=== PATIENT | female | born 1990 | race American Indian/Alaskan Native ===

== ENCOUNTER 2017-10-17 18:47 | Emergency (ER) | payer MEDICAID, OTHER ==
[2017-10-17 18:55] VITALS: BP 138/79
--- NOTE | 2017-10-17 21:21 | Emergency Department Report ---
<WERO BOWMAN - Last Filed: 10/17/17 23:46> ED Extremity Problem HPI - General Chief complaint: Extremity Problem,Nontraumatic Stated complaint: RIGHT CALF PAIN Time Seen by Provider: 10/17/17 20:36 Source: patient Mode of arrival: Ambulatory Limitations: No Limitations - History of Present Illness Initial comments: 27-year-old obese female reports that she does have a right calf cramping pain swelling. Patient denies any history of DVT as well as patient reports that she had been a severe outbreak of herpes. Patient reports that she is currently on no control she does admit to being on a flight on October 13 from [place] to [place]. 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 Patient also complains of chest pain that is midsternal and travels to her back when she takes a deep breath. Patient is currently taking no medication she does have an allergy to amoxicillin. MD Complaint: extremity pain (right calf), extremity swelling (right calf) -: days(s) (4) Location: right, lower extremity History of Same: No -: No fever, Yes associated chest pain Radiation: none Severity scale (0 -10): 9 Quality: other (crampy) Consistency: constant Improves with: nothing Worsens with: weight bearing, walking Associated Symptoms: chest pain - Related Data Previous Rx's Medication Instructions Recorded Last Taken Type Fluconazole [Diflucan] 150 mg PO ONCE #1 tablet 10/17/17 Unknown Rx Ibuprofen [Motrin 800 MG tab] 800 mg PO Q8HR PRN #30 tablet 10/17/17 Unknown Rx Nystatin Cream [Mycostatin Cream] 1 applic TP TID #30 gram 10/17/17 Unknown Rx Allergies Allergy/AdvReac Type Severity Reaction Status Date / Time amoxicillin Allergy Hives Verified 10/17/17 18:49 ED Review of Systems ROS: Stated complaint: RIGHT CALF PAIN Other details as noted in HPI Constitutional: denies: chills, fever Eyes: denies: eye pain, eye discharge, vision change ENT: denies: ear pain, throat pain Respiratory: denies: cough, shortness of breath, wheezing Cardiovascular: chest pain Endocrine: no symptoms reported Gastrointestinal: denies: abdominal pain, nausea, diarrhea Genitourinary: denies: urgency, dysuria, discharge Musculoskeletal: other (right lower leg swelling and pain ) Skin: rash (vaginal area) Neurological: denies: headache, weakness, paresthesias Psychiatric: denies: anxiety, depression Hematological/Lymphatic: denies: easy bleeding, easy bruising ED Past Medical Hx - Past Medical History Additional medical history: anemia, herpes - Surgical History Hx Cholecystectomy: Yes Additional Surgical History: tonsilectomy, x4 - Social History Smoking Status: Never Smoker Substance Use Type: None - Medications Home Medications: Home Medications Medication Instructions Recorded Confirmed Last Taken Type Fluconazole [Diflucan] 150 mg PO ONCE #1 tablet 10/17/17 Unknown Rx Ibuprofen [Motrin 800 MG tab] 800 mg PO Q8HR PRN #30 tablet 10/17/17 Unknown Rx Nystatin Cream [Mycostatin Cream] 1 applic TP TID #30 gram 10/17/17 Unknown Rx ED Physical Exam - General Limitations: No Limitations General appearance: alert, in no apparent distress - Eye Eye exam: Present: EOMI - Neck Neck exam: Present: full ROM. Absent: lymphadenopathy - Expanded Lower Extremity Exam Right Knee exam: Present: full ROM, tenderness, swelling Lower Leg exam: Present: tenderness, swelling, Rony's sign Ankle exam: Present: full ROM, tenderness, swelling Neuro vascular tendon exam: Present: no vascular compromise Gait: Positive: observed and limited by pain - Back Exam Back exam: Present: full ROM. Absent: tenderness - Neurological Exam Neurological exam: Present: alert, oriented X3 - Psychiatric Psychiatric exam: Present: normal affect, normal mood ED Course Vital Signs 10/17/17 10/17/17 18:50 23:55 Temperature 98.6 F Pulse Rate 95 H 79 Respiratory 18 17 Rate Blood Pressure 138/79 O2 Sat by Pulse 99 99 Oximetry ED Medical Decision Making - Lab Data Result diagrams: 10/17/17 20:58 10/17/17 20:58 - Radiology Data Radiology results: report reviewed, image reviewed FINAL REPORT PROCEDURE: CT ANGIO CHEST TECHNIQUE: Computerized axial tomographic angiography of the chest and pulmonary arteries was performed after the IV injection of iodinated nonionic contrast. The image data was postprocessed using maximum intensity projection (MIP) and 2-dimensional multiplanar reformatted (MPR) techniques. The examination is specifically tailored to the evaluation of the pulmonary arteries per clinical request. HISTORY: Short of breath 786.09, chest pain 786.50, elevated d-dimer with cp and with deep breath COMPARISON: No prior studies are available for comparison. FINDINGS: Heart and pericardium: Normal. Thoracic aorta: There is no thoracic aortic aneurysm or dissection.. Pulmonary vasculature: There is no pulmonary embolism. There is suboptimal opacification of the distal pulmonary artery branches.. Lymph nodes: No enlarged thoracic lymph nodes. Lungs: The lungs are clear and expanded. There are no infiltrates.. Pleural space: No effusion, thickening, or pneumothorax. Musculoskeletal structures: No significant abnormality. Upper abdominal structures: No significant abnormality. There has been a cholecystectomy. IMPRESSION: There is no thoracic aortic aneurysm or dissection.. There is no pulmonary embolism. There is suboptimal opacification of the distal pulmonary artery branches.. The lungs are clear and expanded. There are no infiltrates.. . Transcribed By: CO Dictated By: NUBIA SHARMA MD Electronically Authenticated By: NUBIA HSARMA MD Signed Date/Time: 10/17/172300 DD/ 00 TD/TT: 10/17/172300 - Medical Decision Making Patient has been evaluated by this provider fast track. Labs ordered CBC CMP d-dimer Imaging ordered. Critical care attestation.: If time is entered above; I have spent that time in minutes in the direct care of this critically ill patient, excluding procedure time. ED Disposition Disposition: DC-01 TO HOME OR SELFCARE Is pt being admited?: No Does the pt Need Aspirin: No Condition: Stable Additional Instructions: Please take medications as prescribed. It is very important for you to follow up tomorrow morning at 9 AM to radiology for a venous Doppler of the right leg. And please wait for the results before leaving to determine if he needs to be seen in the emergency room. Prescriptions: Fluconazole [Diflucan] 150 mg PO ONCE #1 tablet Ibuprofen [Motrin 800 MG tab] 800 mg PO Q8HR PRN #30 tablet PRN Reason: Pain , Severe (7-10) Nystatin Cream [Mycostatin Cream] 1 applic TP TID #30 gram Referrals: PRIMARY CARE, [Primary Care Provider] - 3-5 Days [facility] [Provider Group] - 3-5 Days Forms: Work/School Release Form(ED) <YENNY PALMA - Last Filed: 10/18/17 14:32> ED Medical Decision Making - Lab Data Result diagrams: 10/17/17 20:58 10/17/17 20:58 - Medical Decision Making Patient had 2+ ultrasound done and this shows that she has a DVT. Patient was contacted to return to emergency department for prescription for Eliquis. Prescription will be provided and patient she'll follow with her primary care physician
[2017-10-17 21:28] LABS: Basophils # (Auto) 0.1 K/mm3 (0.0-0.1); Basophils % (Auto) 1.6 % (0.0-1.8); Eosinophils # (Auto) 0.1 K/mm3 (0.0-0.4); Eosinophils % (Auto) 1.5 % (0.0-4.3); Hematocrit 32.2 % (30.3-42.9); Hemoglobin 9.8 gm/dl (10.1-14.3); Lymphocytes % (Auto) 27.6 % (13.4-35.0); Mean Corpuscular HGB Conc 30 % (30-34); Mean Corpuscular Hemoglobin 19 pg (28-32); Mean Corpuscular Volume 63 fl (79-97); Monocytes # (Auto) 0.8 K/mm3 (0.0-0.8); Monocytes % (Auto) 10.7 % (0.0-7.3); Platelet Count 354 K/mm3 (140-440); Red Blood Count 5.09 M/mm3 (3.65-5.03); Red Cell Distribution Width 17.1 % (13.2-15.2)
[2017-10-17 21:38] LABS: INR 0.98 (0.87-1.13)
[2017-10-17 21:54] LABS: Albumin 4.3 g/dL (3.9-5); BUN/Creatinine Ratio 13; Blood Urea Nitrogen 9 mg/dL (7-17); Calcium 9.4 mg/dL (8.4-10.2); Hemolysis Index 0
[2017-10-17 21:56] LABS: Alanine Aminotransferase < 5 units/L (7-56)
[2017-10-17] MEDS ORDERED: ULTRAM PO ONE (22:01)
[2017-10-17] MEDS ORDERED: ELIQUIS PO ONE (22:12)
[2017-10-17] MEDS ORDERED: MYCOSTATIN TP ONE (22:14)
--- NOTE | 2017-10-17 23:06 | Cat Scan Report ---
FINAL REPORT PROCEDURE: CT ANGIO CHEST TECHNIQUE: Computerized axial tomographic angiography of the chest and pulmonary arteries was performed after the IV injection of iodinated nonionic contrast. The image data was postprocessed using maximum intensity projection (MIP) and 2-dimensional multiplanar reformatted (MPR) techniques. The examination is specifically tailored to the evaluation of the pulmonary arteries per clinical request. HISTORY: Short of breath 786.09, chest pain 786.50, elevated d-dimer with cp and with deep breath COMPARISON: No prior studies are available for comparison. FINDINGS: Heart and pericardium: Normal. Thoracic aorta: There is no thoracic aortic aneurysm or dissection.. Pulmonary vasculature: There is no pulmonary embolism. There is suboptimal opacification of the distal pulmonary artery branches.. Lymph nodes: No enlarged thoracic lymph nodes. Lungs: The lungs are clear and expanded. There are no infiltrates.. Pleural space: No effusion, thickening, or pneumothorax. Musculoskeletal structures: No significant abnormality. Upper abdominal structures: No significant abnormality. There has been a cholecystectomy. IMPRESSION: There is no thoracic aortic aneurysm or dissection.. There is no pulmonary embolism. There is suboptimal opacification of the distal pulmonary artery branches.. The lungs are clear and expanded. There are no infiltrates.. .
--- NOTE | 2017-10-18 20:55 | Emergency Department Report ---
Blank Doc - Documentation Documentation: I was asked to clarify prescription of Eliquis for patient. I reviewed the report US report. Patient does not have DVT. Patient has superficial thrombophlebitis in right calf. I have spoken with patient and pharmacist. I encouraged patient to use aspirin. I discontinued the Eliquis. I encouraged patient to follow up with her PCP for further treatment.
== END 2017-10-17 23:55 | disposition home or self-care (01) ==
LOC: ED 18:47
DX: M79.661 Pain in right lower leg (principal); R07.89 Other chest pain; Z90.49 Acquired absence of other specified parts of digestive tract; Z88.1 Allergy status to other antibiotic agents
CPT/HCPCS: 36415; 71275; 80053; 84703; 85025; 85379; 85610; 99284; Q9967

== ENCOUNTER 2017-10-18 08:46 | Outpatient (CLI) | payer MEDICAID, OTHER ==
--- NOTE | 2017-10-19 16:42 | Vascular Lab Report ---
Right Lower Extremity Venous Duplex Study: Reason for Exam: Pain and swelling of the right lower extremity. Comments on the Right: All veins visualized are freely compressible without evidence of internal echogenicity. Flow is spontaneous and phasic throughout. No evidence of acute or chronic thrombus is seen in any of the vessels visualized. A varicose vein is noted in the distal left calf and is thrombosed. Comments on the Left: A limited duplex study was done of the proximal veins of the left lower extremity. All veins visualized are freely compressible without evidence of internal echogenicity. Flow is spontaneous and phasic throughout. No evidence of acute or chronic thrombus is seen in any of the vessels visualized. Impression: No evidence of acute or chronic deep venous thrombosis in the right lower extremity. There is a thrombosed varicose vein in the distal right calf. The
== END 2017-10-18 08:47 | disposition home or self-care (01) ==
LOC: VAS 08:46
PROVIDERS: ATTEND Physician Assistant
DX: I83.891 Varicose veins of right lower extremity with other complications (principal)

== ENCOUNTER 2017-10-24 01:50 | Emergency (ER) | payer OTHER ==
[2017-10-24 02:33] LABS: Basophils # (Auto) 0.1 K/mm3 (0.0-0.1); Basophils % (Auto) 1.5 % (0.0-1.8); Eosinophils # (Auto) 0.3 K/mm3 (0.0-0.4); Eosinophils % (Auto) 4.5 % (0.0-4.3); Lymphocytes # (Auto) 2.2 K/mm3 (1.2-5.4); Lymphocytes % (Auto) 30.7 % (13.4-35.0); Mean Corpuscular HGB Conc 30 % (30-34); Monocytes # (Auto) 0.7 K/mm3 (0.0-0.8); Monocytes % (Auto) 9.4 % (0.0-7.3); Platelet Count 329 K/mm3 (140-440); Red Blood Count 4.61 M/mm3 (3.65-5.03)
[2017-10-24 02:35] LABS: Hematocrit 29.2 % (30.3-42.9); Hemoglobin 8.7 gm/dl (10.1-14.3); Mean Corpuscular Hemoglobin 19 pg (28-32); Mean Corpuscular Volume 63 fl (79-97)
[2017-10-24 02:51] LABS: BUN/Creatinine Ratio 10; Blood Urea Nitrogen 7 mg/dL (7-17); Calcium 9.1 mg/dL (8.4-10.2); Hemolysis Index 6
[2017-10-24 02:54] LABS: Alanine Aminotransferase < 5 units/L (7-56)
--- NOTE | 2017-10-24 08:22 | Emergency Department Report ---
ED General Adult HPI - General Chief complaint: Extremity Problem,Nontraumatic Stated complaint: RIGHT LEG PAIN Time Seen by Provider: 10/24/17 08:20 Source: patient, RN notes reviewed, old records reviewed Mode of arrival: Ambulatory Limitations: No Limitations - History of Present Illness Initial comments: His is a 27-year-old female who is unknown to this provider previously, recently seen in this hospital for nontraumatic right lower extremity pain, found to have a thrombosed varicose vein, also had a negative CT scan on the chest for pulmonary embolus, who presents to the ER with multiple complaints. The patient's first complaint is non-traumatic right-sided knee pain and discomfort, which she describes as a locking up sensation, the pain is in the anterior knee, increases with palpation, range of motion, decreases with rest. It does not radiate anywhere. Her next complaint is epigastric abdominal pain which radiates down to the lower abdominal region, this is present for a few days, it is sharp, increases with palpation and decreases with rest. She describes to sexual contacts within the past year, she is not sure if she's had a history of gonorrhea or chlamydia. She denies DVT, pulmonary embolus risk factors. Her epigastric pain is described as burning. There is no vomiting, diaphoresis, she denies cocaine ingestion. -: Gradual Location: abdomen, right, lower extremity Radiation: abdomen Severity scale (0 -10): 8 Quality: burning, aching Consistency: intermittent Improves with: rest Worsens with: movement Associated Symptoms: chest pain, loss of appetite, malaise, weakness, other ( right knee pain, abdominal pain). denies: confusion, cough, diaphoresis, fever/ chills, headaches, nausea/vomiting, rash, seizure, shortness of breath, syncope - Related Data Previous Rx's Medication Instructions Recorded Last Taken Type Fluconazole [Diflucan] 150 mg PO ONCE #1 tablet 10/17/17 Unknown Rx Ibuprofen [Motrin 800 MG tab] 800 mg PO Q8HR PRN #30 tablet 10/17/17 Unknown Rx Nystatin Cream [Mycostatin Cream] 1 applic TP TID #30 gram 10/17/17 Unknown Rx Apixaban [Eliquis] 5 mg PO BID #42 tablet 10/18/17 Unknown Rx Acetaminophen [Tylenol Arthritis] 650 mg PO Q6HR PRN #30 tablet.er 10/24/17 Unknown Rx Ibuprofen [Motrin] 600 mg PO Q8H PRN #30 tablet 10/24/17 Unknown Rx Ondansetron [Zofran Odt] 4 mg PO Q8HR PRN #20 tab.rapdis 10/24/17 Unknown Rx Allergies Allergy/AdvReac Type Severity Reaction Status Date / Time amoxicillin Allergy Hives Verified 10/24/17 02:00 ED Review of Systems ROS: Stated complaint: RIGHT LEG PAIN Other details as noted in HPI Constitutional: malaise. denies: fever Eyes: denies: eye discharge ENT: denies: epistaxis Respiratory: denies: cough Cardiovascular: chest pain Gastrointestinal: abdominal pain Genitourinary: denies: dysuria Musculoskeletal: arthralgia, myalgia Skin: denies: lesions Neurological: denies: weakness Psychiatric: anxiety ED Past Medical Hx - Past Medical History Additional medical history: anemia, herpes - Surgical History Hx Cholecystectomy: Yes Additional Surgical History: tonsilectomy, x4 - Social History Smoking Status: Never Smoker Substance Use Type: None - Medications Home Medications: Home Medications Medication Instructions Recorded Confirmed Last Taken Type Fluconazole [Diflucan] 150 mg PO ONCE #1 tablet 10/17/17 Unknown Rx Ibuprofen [Motrin 800 MG tab] 800 mg PO Q8HR PRN #30 tablet 10/17/17 Unknown Rx Nystatin Cream [Mycostatin Cream] 1 applic TP TID #30 gram 10/17/17 Unknown Rx Apixaban [Eliquis] 5 mg PO BID #42 tablet 10/18/17 Unknown Rx Acetaminophen [Tylenol Arthritis] 650 mg PO Q6HR PRN #30 tablet.er 10/24/17 Unknown Rx Ibuprofen [Motrin] 600 mg PO Q8H PRN #30 tablet 10/24/17 Unknown Rx Ondansetron [Zofran Odt] 4 mg PO Q8HR PRN #20 tab.rapdis 10/24/17 Unknown Rx ED Physical Exam - General Limitations: No Limitations, Physical Limitation General appearance: alert, in no apparent distress, obese - Head Head exam: Present: atraumatic, normocephalic - Eye Eye exam: Present: normal appearance, EOMI. Absent: nystagmus - ENT ENT exam: Present: normal exam, normal orophraynx, mucous membranes moist, normal external ear exam - Neck Neck exam: Present: normal inspection, full ROM - Respiratory Respiratory exam: Present: normal lung sounds bilaterally. Absent: respiratory distress - Cardiovascular Cardiovascular Exam: Present: regular rate, normal rhythm, normal heart sounds. Absent: bradycardia, tachycardia, irregular rhythm, systolic murmur, diastolic murmur, rubs, gallop - GI/Abdominal GI/Abdominal exam: Present: soft, tenderness, normal bowel sounds, other (there is suprapubic tenderness, there is bilateral lower quadrant tenderness, there is no rebound, guarding or peritoneal signs.). Absent: distended, guarding, rebound, rigid, pulsatile mass - External exam: Present: normal external exam Speculum exam: Present: vaginal bleeding Bi-manual exam: Present: normal bi-manual exam, other (chaperonne: bhupinder tl). Absent: cervical motion tendernes, adnexal tenderness, adnexal mass , uterine enlargement, uterine tenderness - Extremities Exam Extremities exam: Present: normal inspection, full ROM, tenderness (the right knee is tender on the anterior joint line. There is no laxity. Compartment soft. No redness, pus or streaking.), normal capillary refill, other (2+ pulses noted in the bilateral upper, lower extremities. Compartments soft. The pelvis is stable.). Absent: pedal edema, joint swelling, calf tenderness - Back Exam Back exam: Present: normal inspection - Neurological Exam Neurological exam: Present: alert, oriented X3, CN II-XII intact, other ( Extraocular movements intact. Tongue midline. No facial droop. Facial sensation intact to light touch in the V1, V2, V3 distribution bilaterally. 5 and 5 strength in 4 extremities.. Sensation is intact to light touch in 4 extremities.). Absent: motor sensory deficit - Psychiatric Psychiatric exam: Present: anxious - Skin Skin exam: Present: warm, dry, intact, normal color. Absent: rash ED Course Vital Signs 10/24/17 10/24/17 10/24/17 02:00 06:08 10:14 Temperature 98.5 F Pulse Rate 89 66 Respiratory 18 13 20 Rate Blood Pressure 124/54 Blood Pressure 121/66 [Left] O2 Sat by Pulse 97 100 Oximetry - Reevaluation(s) Reevaluation #1: 10/24/17 11:09 Differential diagnosis, including but not limited to: GERD, gastritis, pancreatitis, pelvic inflammatory disease, pneumonia, acute coronary syndrome, dysmenorrhea, arthritis, patellofemoral syndrome Assessment and plan: 27-year-old female with a primary complaint of right leg pain, secondary complaint of epigastric abdominal pain and lower abdominal pain. Recently ruled out for pulmonary embolus and DVT. X-ray of the knee is negative for fracture, dislocation. May be tendon overuse syndrome versus patellofemoral syndrome. The knee pain Be treated symptomatically, supportively , and she can follow up with outpatient primary care. She may also follow-up with outpatient orthopedics for this. In terms of the patient's abdominal pain, we will perform a gynecologic examination, obtain a pelvic ultrasound, check CAT scan of the abdomen/pelvis. Has no focal pulmonary findings, therefore think pneumonia is unlikely. Low risk by CHANDANA score, low risk by heart score, epigastric pain has been present for days, troponin negative 1, as per the [employer] clinical policy, myocardial infarction may be excluded with 1 set of cardiac enzymes and symptoms have been present for greater than 8 hours. Reevaluation #2: 10/24/17 12:56 CT scan negative for acute disease. Ultrasound negative for acute disease. Clinically doubt pelvic inflammatory disease. Patient has no obvious emergent condition at this time. Patient will be discharged. ED Medical Decision Making - Lab Data Result diagrams: 10/24/17 02:11 10/24/17 02:11 Vital Signs 10/24/17 10/24/17 02:00 06:08 Temperature 98.5 F Pulse Rate 89 66 Respiratory 18 13 Rate Blood Pressure 124/54 Blood Pressure 121/66 [Left] O2 Sat by Pulse 97 100 Oximetry Lab Results 10/24/17 10/24/17 Range/Units 02:11 02:11 WBC 7.3 (4.5-11.0) K/mm3 RBC 4.61 (3.65-5.03) M/mm3 Hgb 8.7 L (10.1-14.3) gm/dl Hct 29.2 L (30.3-42.9) % MCV 63 L (79-97) fl MCH 19 L (28-32) pg MCHC 30 (30-34) % RDW 17.0 H (13.2-15.2) % Plt Count 329 (140-440) K/mm3 Lymph % (Auto) 30.7 (13.4-35.0) % [place] % (Auto) 9.4 H (0.0-7.3) % Eos % (Auto) 4.5 H (0.0-4.3) % Baso % (Auto) 1.5 (0.0-1.8) % Lymph # 2.2 (1.2-5.4) K/mm3 [place] # 0.7 (0.0-0.8) K/mm3 Eos # 0.3 (0.0-0.4) K/mm3 Baso # 0.1 (0.0-0.1) K/mm3 Seg Neutrophils % 53.9 (40.0-70.0) % Seg Neutrophils # 3.9 (1.8-7.7) K/mm3 Sodium 143 (137-145) mmol/L Potassium 4.0 (3.6-5.0) mmol/L Chloride 106.9 (98-107) mmol/L Carbon Dioxide 23 (22-30) mmol/L Anion Gap 17 mmol/L BUN 7 (7-17) mg/dL Creatinine 0.7 (0.7-1.2) mg/dL Estimated GFR > 60 ml/min BUN/Creatinine Ratio 10 % Glucose 91 (65-100) mg/dL Calcium 9.1 (8.4-10.2) mg/dL Total Bilirubin < 0.20 (0.1-1.2) mg/dL AST 13 (5-40) units/L ALT < 5 L (7-56) units/L Alkaline Phosphatase 60 (35-129) units/L Total Protein 6.8 (6.3-8.2) g/dL Albumin 4.0 (3.9-5) g/dL Albumin/Globulin Ratio 1.4 % - EKG Data -: EKG Interpreted by Wy EKG shows normal: axis, intervals, QRS complexes, ST-T waves Rate: bradycardia - EKG Data When compared to previous EKG there are: previous EKG unavailable 10/24/17 11:11 Sinus bradycardia, 56 bpm, normal axis, normal intervals, not a stemi - Radiology Data Radiology results: report reviewed, [facility] 1990 MedRec# [id number] 10/18/17 11:20 - Radiology Dept. Note by SATISHJAZMYNEHIGINIO [facility] Num: [id number] : 1990 Patient Age: 27 VASCULAR LAB.PRELIMINARY REPORT. RLE VENOUS DUPLEX DONE. NO EVIDENCE OF DVT IN VESSELS VISUALIZED. THROMBOSED VARICOSE VEINS NOTED AT RT.DISTAL CALF BEHIND THE LOWER LEG. DAMIEN ( RN) INFORMED AT 1115. Initialized on 10/18/17 11:20 - END OF NOTE X-ray of the right knee is negative for acute disease Critical care attestation.: If time is entered above; I have spent that time in minutes in the direct care of this critically ill patient, excluding procedure time. ED Disposition Clinical Impression: Right leg pain, Dysfunctional uterine bleeding Disposition: - TO HOME OR SELFCARE Is pt being admited?: No Does the pt Need Aspirin: No Condition: Good Instructions: Arthralgia (ED), Dysfunctional Uterine Bleeding (ED), Patellofemoral Pain Syndrome (ED) Additional Instructions: Cultures were sent today, results will be available in the next 3-5 days. Have a primary care doctor or land title examiner contact the medical records department to obtain culture results. Rest, and avoid heavy lifting and avoid strenuous physical activity. Knee pain appears to be coming from the muscles and connective tissue within the joint. Keep the knee immobilizer in place, weight-bear as tolerated, use crutches as needed/required. Physical activities as tolerated and avoid heavy lifting and sports/strenuous physical activity. Follow-up with the primary care doctor or orthopedist within the next 7-10 days for outpatient initiation of physical therapy to improve the strength of the muscles and connective tissue around the knee joint. Pain in the knee will likely take a few weeks to a few months to completely improved. Abdominal pain mostly coming from menstruation, take the pain medication, nausea medication as needed/directed, please follow up with a primary care doctor or [facility] physician for this within the next month. Return to the ER right away with new pain, worsened pain, migration of pain, fevers, chills, lethargy, irritability, projectile vomiting, change in mental status, confusion , inability to tolerate liquid feeds. Referrals: PRIMARY CAREMD [Primary Care Provider] - 3-5 Days AN[facility] YE MD [Staff Physician] - 3-5 Days [facility] [Provider Group] - 3-5 Days [facility] [Provider Group] - 3-5 Days Forms: Work/School Release Form(ED)
[2017-10-24] MEDS ORDERED: NACL 0.9% 1000 ML 1,000 ML IV ONE (08:42)
[2017-10-24] MEDS ORDERED: TORADOL IV ONE (08:42)
[2017-10-24] MEDS ORDERED: SUBLIMAZE IV ONE (08:42)
[2017-10-24 09:19] LABS: HCG Qualitative,Urine Negative (Negative)
[2017-10-24 09:26] LABS: Bacteria,Urine 1+ /HPF (Negative); Bilirubin,Urine NEG (Negative); Blood,Urine LG (Negative); Color,Urine Yellow (Yellow); Mucus,Urine 3+ /HPF; Urobilinogen,Urine < 2.0 mg/dL (<2.0)
--- NOTE | 2017-10-24 10:07 | XRay Report ---
Right knee 3 views: History right knee pain. Findings: No bony or articular abnormality. No fracture dislocation or soft tissue calcification. Impression: Essentially negative right knee.
--- NOTE | 2017-10-24 11:35 | Cat Scan Report ---
CT scan of abdomen and pelvis with IV contrast: History: Abdominal pain. Findings: Normal lung bases. No pleural pericardial effusion. Normal liver spleen and pancreas. Patient status post cholecystectomy. Normal adrenals kidney parenchyma and bladder. No free intraperitoneal fluid or air. No evidence of adenopathy. Normal aorta. Gaseous colon but moderate volume of stool in colon. Normal appendix. No evidence of diverticulitis. Impression: Essentially negative CT scan of the abdomen and CT scan of pelvis.
--- NOTE | 2017-10-24 12:50 | Ultrasound Report ---
Pelvic and transvaginal sonography: History: Lower abdominal pain. Findings: Uterus measures 9.5 x 5.6 x 7.9 cm. Endometrial thickness is 9.7 mm. Right ovary 3.2 x 2.5 x 2.2 cm. Cyst in the right ovary measures 1.8 cm. Left ovary 3.6 x 2.5 x 1.7 cm. No mass. Impression: Heterogeneous endometrium. Small right ovarian cyst.
[2017-10-24 13:59] VITALS: BP 118/65
== END 2017-10-24 13:46 | disposition home or self-care (01) ==
LOC: ED 01:50
DX: M25.561 Pain in right knee (principal); N93.8 Other specified abnormal uterine and vaginal bleeding; K29.70 Gastritis, unspecified, without bleeding; Z88.1 Allergy status to other antibiotic agents; Z86.2 Personal history of diseases of the blood and blood-forming organs and certain disorders involving the immune mechanism; Z90.89 Acquired absence of other organs; X50.0XXA Overexertion from strenuous movement or load, initial encounter; Y93.89 Activity, other specified; Y92.89 Other specified places as the place of occurrence of the external cause; Y99.8 Other external cause status
CPT/HCPCS: 29505; 36415; 73562; 74177; 76830; 76856; 80053; 81001; 81025; 84484; 85025; 87591; 93005; 93010; 96361; 96374; 96375; 99285; J1885; J3010; J7030; Q9967